=== PATIENT | male | born 1985 | race African-American/Black ===

== ENCOUNTER 2019-11-04 09:11 | Emergency (ER) | payer MEDICAID ==
[~2019-11-04] VITALS: Ht 176.5 cm; Wt 85.3 kg
[2019-11-04 09:15] VITALS: BP 136/91
--- NOTE | 2019-11-04 09:21 | NUR ---
Amb to bed 12, urine cup given to pt
--- NOTE | 2019-11-04 09:33 | NUR ---
33/M BIB SELF C/O HIGH BLOOD PRESSURE, DRY MOUTH. Denies hx HTN. Checked this am with result of "138/90s". Denies dizziness, denies visual change. Denies pain. PATIENT STATES PAIN OF 0/10 AT THIS TIME.PATIENT POSITIONED FOR COMFORT; HOB ELEVATED; BEDRAILS UP X1; BED DOWN. ER MD MADE AWARE OF PT STATUS.
--- NOTE | 2019-11-04 09:34 | NUR ---
DR SERRANO EVALUATING PT AT BEDSIDE
--- NOTE | 2019-11-04 09:35 | NUR ---
Patient being evaluated by DR SERRANO at bedside.
--- NOTE | 2019-11-04 09:51 | NUR ---
LAB AT BEDSIDE.
[2019-11-04 10:04] LABS: BASOPHILS % (AUTO) 1.3 % (0.0-2.0); EOSINOPHILS % (AUTO) 0.4 % (0.0-4.0); HEMATOCRIT 43.8 % (36-52); HEMOGLOBIN 14.6 g/dL (12.0-18.0); LYMPHOCYTES # (AUTO) 1.7 K/uL (2.0-11.5); LYMPHOCYTES % (AUTO) 48.3 % (20.5-51.1); MEAN CORPUSCULAR HEMOGLOBIN 31 pg (27-31); MEAN CORPUSCULAR HGB CONC 33 g/dL (33-37); MEAN CORPUSCULAR VOLUME 92.4 fL (80-94); MONOCYTES # (AUTO) 0.2 K/uL (0.8-1.0); MONOCYTES % (AUTO) 6.8 % (1.7-9.3); NEUTROPHILS # (AUTO) 1.5 K/uL (1.8-7.7); NEUTROPHILS % (AUTO) 43.2 % (42.2-75.2); PLATELET COUNT (AUTO) 123 K/uL (140-450); RED BLOOD CELL COUNT(AUTO) 4.74 MIL/uL (4.20-6.10); RED CELL DISTRIBUTION WIDTH 12.8 % (11.6-13.7); WHITE BLOOD COUNT (AUTO) 3.4 K/uL (4.8-10.8)
[2019-11-04 10:07] LABS: APPEARANCE,URINE CLEAR (CLEAR); BILIRUBIN,URINE NEGATIVE (NEGATIVE); BLOOD, URINE NEGATIVE (NEGATIVE); COLOR,URINE YELLOW (YELLOW); LEUKOCYTE ESTERASE ,URINE NEGATIVE (NEGATIVE); NITRITE, URINE NEGATIVE (NEGATIVE); PH,URINE 6.5 (5.0-9.0); UGLUCOSE NEGATIVE (NEGATIVE)
[2019-11-04 10:19] LABS: ALBUMIN 4.1 g/dL (3.4-5.0); ANION GAP 10.6 (8-16); CARBON DIOXIDE 31.2 mmol/L (21-32); POTASSIUM 3.8 mmol/L (3.5-5.1); TOTAL BILIRUBIN 0.8 mg/dL (0.0-1.0)
[2019-11-04 12:01] VITALS: BP 116/72
--- NOTE | 2019-11-04 12:02 | NUR ---
Patient discharged with v/s stable. Written and verbal after care instructions given and explained. Patient verbalized understanding. Ambulatory with steady gait. All questions addressed prior to discharge. Advised to follow up with PMD.
== END 2019-11-04 12:02 | disposition home or self-care (01) ==
LOC: MED 09:11
DX: E86.0 Dehydration (principal); Z90.49 Acquired absence of other specified parts of digestive tract
CPT/HCPCS: 36415; 80053; 81003; 85025; 99283

== ENCOUNTER 2019-11-07 14:20 | Emergency (ER) | payer MEDICAID ==
[~2019-11-07] VITALS: Ht 175.3 cm; Wt 85.3 kg
[2019-11-07 14:28] VITALS: BP 118/84
[2019-11-07 14:56] VITALS: BP 118/84
== END 2019-11-07 14:55 | disposition home or self-care (01) ==
LOC: MED 14:20
DX: I10 Essential (primary) hypertension (principal); Z76.0 Encounter for issue of repeat prescription
CPT/HCPCS: 99281

== ENCOUNTER 2022-02-28 15:57 | Emergency (ER) | payer MEDICAID ==
[~2022-02-28] VITALS: Ht 180.3 cm; Wt 90.7 kg
[2022-02-28 16:33] VITALS: BP 161/88
[2022-02-28] MEDS ORDERED: MECLIZINE 25 MG TAB PO ONE (18:30)
[2022-02-28] MEDS ORDERED: MECL-303 PO (18:31)
[2022-02-28 18:46] VITALS: BP 150/109
--- NOTE | 2022-02-28 18:50 | NUR ---
36 y/o male, pt presents to ed for c/o dizzy, near syncope that started 4 days ago. pt denies any head/neck trauma, loc or fall. denies nausea, vomiting, diarrhea. skin is pink/warm/dry. a&o x4 with even and steady gait. lungs clear bl, heart rate even and regular. pt denies any fever, cp, sob, or cough at this time. pt states pain is 0/10 at this time. patient positioned for comfort. hob elevated. bed down. ermd made aware of pt. pmh: htn nka med: amlodipine, hydrochlorothiazide
== END 2022-02-28 19:20 | disposition home or self-care (01) ==
LOC: MED 15:57
DX: R42 Dizziness and giddiness (principal); I10 Essential (primary) hypertension; Z90.49 Acquired absence of other specified parts of digestive tract; Z79.899 Other long term (current) drug therapy
CPT/HCPCS: 93005; 99283; J8597